=== PATIENT | male | born 2000 | race Caucasian/White ===

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

== ENCOUNTER 2023-02-24 13:58 | Inpatient (IN) | payer MEDICAID, OTHER, SELFPAY ==
[~2023-02-24] VITALS: Ht 185.4 cm; Wt 77.3 kg
[~2023-02-24 13:58] MED LIST changes: +FLUT50SP17; -FLUTISP; -IBUP200T45 PO; +IBUP200T46 PO; +RISP-8 PO; -RISP1TAB3 PO
[2023-02-24 14:16] LABS: HEMOGLOBIN 15.8 g/dl (13.5-17.5); MEAN CORPUSCULAR HEMOGLOBIN 31.1 pg (27.0-33.0); MEAN CORPUSCULAR HGB CONC 35.1 g/dl (32.0-36.5); MEAN CORPUSCULAR VOLUME 88.6 fl (80.0-96.0); PLATELET COUNT, AUTOMATED 232 10^3/uL (150-450); RED BLOOD COUNT 5.08 10^6/uL (4.30-6.10); WHITE BLOOD COUNT 13.7 10^3/uL (4.0-10.0)
[2023-02-24] MEDS ORDERED: MED REC IN PROGRESS XX SCH (14:25)
[2023-02-24 14:45] LABS: ETHYL ALCOHOL (ETHANOL) < 0.003 % (0.000-0.010)
[2023-02-24 14:47] LABS: ACETAMINOPHEN LEVEL < 2.0 UG/ML (10.0-20.0); ALBUMIN 5.1 G/DL (3.2-5.2); ALKALINE PHOSPHATASE 96 U/L (46-116); ALT/SGPT 85 U/L (7.0-40); AST/SGOT 40 U/L (<34); BILIRUBIN,DIRECT 0.6 MG/DL (<0.4); BILIRUBIN,TOTAL 1.5 MG/DL (0.3-1.2); BLOOD UREA NITROGEN 11 MG/DL (9-23); CALCIUM LEVEL 9.8 MG/DL (8.5-10.1); CARBON DIOXIDE LEVEL 27 MMOL/L (20-31); CHLORIDE LEVEL 106 MMOL/L (98-107); CREATININE FOR GFR 0.88 MG/DL (0.70-1.30); GLUCOSE, FASTING 89 MG/DL (60-100); POTASSIUM SERUM 3.6 MMOL/L (3.5-5.1); SALICYLATE LEVEL < 3.0 MG/DL (<30); SODIUM LEVEL 142 MMOL/L (136-145); TOTAL PROTEIN 7.7 G/DL (5.7-8.2)
[2023-02-24 14:50] LABS: THYROID STIMULATING HORMONE 0.595 uIU/ML (0.48-4.17)
[2023-02-24] MEDS ORDERED: HOME MED LIST COMPLETE! XX SCH (15:40)
[2023-02-24 17:43] LABS: BARBITURATES URINE NEGATIVE (NEGATIVE); BENZODIAZEPINES URINE NEGATIVE (NEGATIVE); COCAINE METABOLITE URINE NEGATIVE (NEGATIVE); METHADONE URINE NEGATIVE (NEGATIVE); OPIATES URINE NEGATIVE (NEGATIVE)
[2023-02-24 17:44] LABS: PHENCYCLIDINE URINE NEGATIVE (NEGATIVE)
[2023-02-24 17:59] LABS: AMPHETAMINES LEVEL URINE POSITIVE (NEGATIVE); CANNABINOIDS URINE POSITIVE (NEGATIVE)
[2023-02-25] MEDS ORDERED: OLANZapine ORAL DISINTEGRATING TAB 5MG PO PRN (01:50)
[2023-02-25] MEDS ORDERED: IBUPROFEN 400MG TAB PO PRN (01:50)
[2023-02-25] MEDS ORDERED: diphenhydrAMINE 25MG CAP PO PRN (01:50)
[2023-02-25] MEDS ORDERED: MAALOX 30 ML SUSP *UDC PO PRN (01:50)
[2023-02-25] MEDS ORDERED: ACETAMINOPHEN TAB 650MG DOSE (2X325MG) PO PRN (01:50)
[2023-02-25] MEDS ORDERED: MOM 30ML SUSPENSION UDC PO PRN (01:50)
[2023-02-25 02:34] VITALS: BP 123/57; TEMP 97.1; O2SAT 100
[2023-02-25 06:03] VITALS: BP 124/60; TEMP 97.2; O2SAT 99
[2023-02-25] MEDS: NICOTINE 21MG/24HR 1 EA TRANSDERMAL TD PRN (12:32)
[2023-02-25 16:01] VITALS: BP 127/62; TEMP 97.9; O2SAT 100
[2023-02-25 20:41] LABS: HEPATITIS B SURFACE ANTIGEN NEGATIVE (NEGATIVE)
[2023-02-25 20:54] LABS: HIV 1&2 SCREEN NEGATIVE (NEGATIVE)
[2023-02-25 21:03] LABS: HEPATITIS B CORE ANTIBODY IGM NEGATIVE (NEGATIVE)
[2023-02-25 21:32] LABS: HEPATITIS C VIRUS ABY INDEX > 11.00 INDEX (<0.8)
[2023-02-26 06:27] VITALS: BP 125/68; TEMP 97.3; O2SAT 100
[2023-02-26] MEDS: NICOTINE 21MG/24HR 1 EA TRANSDERMAL TD PRN (11:34)
[2023-02-26] MEDS: NICOTINE POLACRILEX 2 MG GUM PO PRN (13:03)
[2023-02-26 17:01] VITALS: BP 131/60; TEMP 97.2; O2SAT 97
[2023-02-26] MEDS: traZODone 50 MG TAB PO PRN (20:40)
[2023-02-27 06:02] VITALS: BP 120/60; TEMP 97.3; O2SAT 96
[2023-02-27] MEDS: NICOTINE POLACRILEX 2 MG GUM PO PRN ×4 (08:59→21:04)
[2023-02-27 16:52] VITALS: BP 118/99; TEMP 97.6; O2SAT 99
[2023-02-27] MEDS: OLANZapine 5 MG TAB PO SCH (21:04)
[2023-02-27] MEDS: traZODone 50 MG TAB PO PRN (21:04)
[2023-02-28] MEDS: NICOTINE POLACRILEX 2 MG GUM PO PRN ×5 (01:32→22:16)
[2023-02-28 06:31] VITALS: BP 134/60; TEMP 98; O2SAT 97
[2023-02-28 07:53] LABS: CHOLESTEROL LEVEL 93 MG/DL (<200); CHOLESTEROL RISK RATIO 3.11 (<5); HDL CHOLESTEROL 29.9 MG/DL (>40); NON-HDL-C 63.1 MG/DL; TRIGLYCERIDES LEVEL 329 MG/DL (<150)
[2023-02-28 18:21] VITALS: BP 140/82; TEMP 96.9; O2SAT 100
[2023-02-28] MEDS: OLANZapine 5 MG TAB PO SCH (20:11)
[2023-02-28] MEDS: traZODone 50 MG TAB PO PRN (20:11)
[2023-03-01 06:04] VITALS: BP 126/60; TEMP 97.2; O2SAT 99
[2023-03-01] MEDS: NICOTINE POLACRILEX 2 MG GUM PO PRN ×2 (08:52→12:36)
[2023-03-01] MEDS ORDERED: TRAZ-252 PO (10:17)
[2023-03-01] MEDS ORDERED: NICO2GUM PO (10:17)
[2023-03-01] MEDS ORDERED: OLAN1TAB16 PO (10:17)
== END 2023-03-01 14:33 | disposition home or self-care (01) | DRG 776 ==
LOC: M ED 13:58 → M ED INP 02-25 01:47 → M PSY 02-25 02:27
PROVIDERS: ADMIT Student in an Organized Health Care Education/Training Program; ATTEND Student in an Organized Health Care Education/Training Program
DX: F15.959 Other stimulant use, unspecified with stimulant-induced psychotic disorder, unspecified (principal); F17.290 Nicotine dependence, other tobacco product, uncomplicated; F12.90 Cannabis use, unspecified, uncomplicated; F60.89 Other specific personality disorders; F90.9 Attention-deficit hyperactivity disorder, unspecified type; R45.851 Suicidal ideations

== ENCOUNTER 2023-05-30 00:45 | Emergency (ER) | payer MEDICAID, OTHER ==
[~2023-05-30] VITALS: Ht 185.4 cm; Wt 80.0 kg
[~2023-05-30 00:45] MED LIST changes: +NICO2GUM PO; +OLAN1TAB16 PO; +TRAZ-252 PO
[2023-05-30 01:22] LABS: BASO % 0.3 % (0.0-1.0); EOS % 0.2 % (0.0-3.0); HEMATOCRIT 43.3 % (42.0-52.0); HEMOGLOBIN 15.2 g/dl (13.5-17.5); LYMPH # 1.4 10^3/uL (1.5-5.0); LYMPH % 11.6 % (24.0-44.0); MEAN CORPUSCULAR HEMOGLOBIN 31.3 pg (27.0-33.0); MEAN CORPUSCULAR HGB CONC 35.1 g/dl (32.0-36.5); MEAN CORPUSCULAR VOLUME 89.3 fl (80.0-96.0); MONO # 0.7 10^3/uL (0.0-0.8); MONO % 5.6 % (2.0-8.0); NEUTROPHILS # 9.7 10^3/uL (1.5-8.5); NEUTROPHILS % 81.9 % (36.0-66.0); PLATELET COUNT, AUTOMATED 189 10^3/uL (150-450); RED BLOOD COUNT 4.85 10^6/uL (4.30-6.10); WHITE BLOOD COUNT 11.9 10^3/uL (4.0-10.0)
[2023-05-30 01:45] LABS: LIPASE 29 U/L (12-53)
[2023-05-30 01:47] LABS: ALBUMIN 4.3 G/DL (3.2-5.2); ALKALINE PHOSPHATASE 101 U/L (46-116); ALT/SGPT 56 U/L (7.0-40); AST/SGOT 32 U/L (<34); BILIRUBIN,DIRECT < 0.1 MG/DL (<0.4); BILIRUBIN,TOTAL 0.2 MG/DL (0.3-1.2); BLOOD UREA NITROGEN 9 MG/DL (9-23); CARBON DIOXIDE LEVEL 26 MMOL/L (20-31); CHLORIDE LEVEL 106 MMOL/L (98-107); CREATININE FOR GFR 0.62 MG/DL (0.70-1.30); GLUCOSE, FASTING 129 MG/DL (60-100); POTASSIUM SERUM 3.4 MMOL/L (3.5-5.1); SODIUM LEVEL 140 MMOL/L (136-145)
[2023-05-30 03:41] VITALS: BP 169/95; TEMP 98.3; O2SAT 100
[2023-05-31] MEDS ORDERED: REGL10TA6 PO (22:21)
== END 2023-05-30 04:26 | disposition left against medical advice (07) ==
LOC: M ED 00:45 → EDBD 00:45 → M ED 04:26
DX: R10.9 Unspecified abdominal pain (principal); Z53.9 Procedure and treatment not carried out, unspecified reason

== ENCOUNTER 2023-05-31 15:26 | Emergency (ER) | payer OTHER ==
[~2023-05-31] VITALS: Ht 185.4 cm; Wt 81.8 kg
[2023-05-31 19:37] LABS: BASO # 0.1 10^3/uL (0.0-0.2); BASO % 0.3 % (0.0-1.0); EOS % 0.1 % (0.0-3.0); HEMATOCRIT 53.6 % (42.0-52.0); LYMPH # 2.3 10^3/uL (1.5-5.0); LYMPH % 14.5 % (24.0-44.0); MEAN CORPUSCULAR HEMOGLOBIN 30.7 pg (27.0-33.0); MEAN CORPUSCULAR HGB CONC 35.1 g/dl (32.0-36.5); MEAN CORPUSCULAR VOLUME 87.6 fl (80.0-96.0); MONO # 1.3 10^3/uL (0.0-0.8); MONO % 8.3 % (2.0-8.0); NEUTROPHILS # 11.9 10^3/uL (1.5-8.5); NEUTROPHILS % 76.5 % (36.0-66.0); PLATELET COUNT, AUTOMATED 247 10^3/uL (150-450); RED BLOOD COUNT 6.12 10^6/uL (4.30-6.10); WHITE BLOOD COUNT 15.6 10^3/uL (4.0-10.0)
[2023-05-31 19:42] LABS: HEMOGLOBIN 18.8 g/dl (13.5-17.5)
[2023-05-31 19:59] LABS: LIPASE 27 U/L (12-53)
[2023-05-31 20:03] LABS: ALBUMIN 4.8 G/DL (3.2-5.2); ALKALINE PHOSPHATASE 115 U/L (46-116); ALT/SGPT 61 U/L (7.0-40); AST/SGOT 30 U/L (<34); BILIRUBIN,DIRECT 0.2 MG/DL (<0.4); BILIRUBIN,TOTAL 0.8 MG/DL (0.3-1.2); BLOOD UREA NITROGEN 6 MG/DL (9-23); CALCIUM LEVEL 9.9 MG/DL (8.5-10.1); CARBON DIOXIDE LEVEL 28 MMOL/L (20-31); CHLORIDE LEVEL 103 MMOL/L (98-107); CREATININE FOR GFR 0.58 MG/DL (0.70-1.30); GLUCOSE, FASTING 96 MG/DL (60-100); POTASSIUM SERUM 3.7 MMOL/L (3.5-5.1); SODIUM LEVEL 139 MMOL/L (136-145); TOTAL PROTEIN 8.1 G/DL (5.7-8.2)
[2023-05-31 20:16] LABS: RSV AMPLIFICATION NEGATIVE (NEGATIVE)
[2023-05-31] MEDS ORDERED: KETOROLAC 30 MG/ML 1ML VIAL IV ONE (20:40)
[2023-05-31] MEDS ORDERED: diphenhydrAMINE 50MG/ML VIAL IV ONE (20:40)
[2023-05-31] MEDS ORDERED: HALOPERIDOL 5MG/ML 1ML VIAL IV ONE (20:40)
[2023-05-31] MEDS ORDERED: ONDANSETRON 4MG 2ML VIAL IV ONE (20:40)
[2023-05-31] MEDS ORDERED: NS 1,000 ML IV ONE (20:40)
[2023-05-31] MEDS ORDERED: ISOVUE-370 76% 100ML VIAL As Ordered ONE (20:50)
[2023-05-31 21:04] LABS: CK-MB VALUE MASS < 1.0 NG/ML (<3.6)
[2023-05-31 22:05] LABS: MAGNESIUM LEVEL 1.7 MG/DL (1.8-2.4)
[2023-05-31 22:15] LABS: CPK CREATINE PHOSPHOKINASE 54 U/L (46-171); MB/CK RELATIVE INDEX 1.85 (< OR =4)
[2023-05-31] MEDS ORDERED: REGL10TA6 PO (22:21)
[2023-05-31 23:43] LABS: CK-MB VALUE MASS < 1.0 NG/ML (<3.6)
[2023-05-31 23:44] LABS: CPK CREATINE PHOSPHOKINASE 58 U/L (46-171); MB/CK RELATIVE INDEX 1.72 (< OR =4)
[2023-05-31 23:56] VITALS: BP 150/90; TEMP 98.4; O2SAT 97
== END 2023-06-01 01:32 | disposition home or self-care (01) ==
LOC: M ED 15:26
DX: F12.188 Cannabis abuse with other cannabis-induced disorder (principal); R03.0 Elevated blood-pressure reading, without diagnosis of hypertension; F17.210 Nicotine dependence, cigarettes, uncomplicated
CPT/HCPCS: 70450; 74177; 80048; 80076; 81001; 82550; 82553; 83605; 83690; 83735; 85025; 87040; 87631; 93005; 96361; 96374; 99284; J1200; J1630; J1885; J2405; Q9967

== ENCOUNTER → 2023-07-01 | Outpatient (CLI) | payer OTHER ==
[~2023-07-01] MED LIST changes: +REGL10TA6 PO
== END ==
LOC: M PLALAB 12:00
PROVIDERS: ATTEND Internal Medicine Infectious Disease
DX: B18.2 Chronic viral hepatitis C (principal)

== ENCOUNTER → 2024-01-06 | Outpatient (CLI) | payer OTHER ==
[~2024-01-06] MED LIST changes: -FLUT50SP17; +FLUTISP; +RISP-105 PO; -RISP-8 PO
[2024-01-06 12:44] LABS: HEPATITIS B SURFACE ANTIGEN NEGATIVE (NEGATIVE)
[2024-01-06 12:58] LABS: HIV 1&2 SCREEN NEGATIVE (NEGATIVE)
[2024-01-06 13:11] LABS: HEPATITIS C VIRUS ABY INDEX > 11.00 INDEX (<0.8)
[2024-01-06 13:30] LABS: GC DNA AMPLIFICATION NEGATIVE (NEGATIVE)
== END ==
LOC: M LAB 10:50
PROVIDERS: ATTEND Family Medicine
DX: F11.20 Opioid dependence, uncomplicated (principal)

== ENCOUNTER → 2024-01-09 | Outpatient (REF) | payer OTHER ==
[~2024-01-09] MED LIST changes: +CLON0.2D6 TD; +ONDA4TAB6 PO
== END ==
LOC: M LAB REF 21:46
PROVIDERS: ATTEND Physician Assistant
DX: J02.9 Acute pharyngitis, unspecified (principal)

== ENCOUNTER 2024-01-14 23:32 | Emergency (ER) | payer OTHER ==
[~2024-01-14] VITALS: Ht 182.9 cm; Wt 95.5 kg
[~2024-01-14 23:32] MED LIST changes: -CLON0.2D6 TD; -ONDA4TAB6 PO
[2024-01-15] MEDS ORDERED: CLON0.2D6 TD (00:12)
[2024-01-15] MEDS: IBUPROFEN 800 MG TAB PO ONE (00:20)
[2024-01-15 01:05] LABS: RSV AMPLIFICATION NEGATIVE (NEGATIVE)
[2024-01-15 01:54] VITALS: BP 165/95; TEMP 99; O2SAT 98
[2024-01-15] MEDS ORDERED: ONDA4TAB6 PO (02:00)
[2024-01-15] MEDS: ONDANSETRON 4MG ORAL DISINTEGRATING TAB PO ONE (02:20)
== END 2024-01-15 02:24 | disposition home or self-care (01) ==
LOC: M ED 23:32
DX: R11.2 Nausea with vomiting, unspecified (principal); B34.9 Viral infection, unspecified; Z20.822 Contact with and (suspected) exposure to COVID-19; F90.9 Attention-deficit hyperactivity disorder, unspecified type; F32.A Depression, unspecified; F17.200 Nicotine dependence, unspecified, uncomplicated

== ENCOUNTER 2024-02-21 00:55 | Emergency (ER) | payer OTHER ==
[~2024-02-21] VITALS: Ht 182.9 cm; Wt 95.5 kg
[~2024-02-21 00:55] MED LIST changes: +CLON0.2D6 TD; +ONDA-282 PO
[2024-02-21 04:24] VITALS: BP 168/95
[2024-02-21 04:27] VITALS: BP 119/61; TEMP 98.1; O2SAT 99
== END 2024-02-21 06:17 | disposition home or self-care (01) ==
LOC: M ED 00:55
DX: I10 Essential (primary) hypertension (principal); F32.9 Major depressive disorder, single episode, unspecified; F91.3 Oppositional defiant disorder; F17.200 Nicotine dependence, unspecified, uncomplicated